=== PATIENT | female | born 1995 | race Caucasian/White ===

== ENCOUNTER 2020-10-10 11:03 | Emergency (ER) | payer OTHER ==
[~2020-10-10] VITALS: Ht 160 cm; Wt 83.5 kg
[2020-10-10] MEDS ORDERED: PRENATABS RX T1 EACH PO (11:24)
== END 2020-10-10 18:02 | disposition home or self-care (01) ==
LOC: ER 11:03
DX: O26.892 Other specified pregnancy related conditions, second trimester (principal); R10.2 Pelvic and perineal pain; Z34.02 Encounter for supervision of normal first pregnancy, second trimester

== ENCOUNTER 2020-11-03 17:24 | Emergency (ER) | payer OTHER ==
[~2020-11-03] VITALS: Ht 160 cm; Wt 84.8 kg
[~2020-11-03 17:24] MED LIST: PRENATABS RX T1 EACH PO
[2020-11-03] MEDS ORDERED: ZITHROMAX500 MG PO (20:16)
[2020-11-03] MEDS ORDERED: ZYRTEC10 MG PO (20:16)
[2020-11-03] MEDS ORDERED: TUSSIN100 MG/5 M PO (20:16)
== END 2020-11-03 20:22 | disposition home or self-care (01) ==
LOC: ER 17:24
DX: J06.9 Acute upper respiratory infection, unspecified (principal); Z20.822 Contact with and (suspected) exposure to COVID-19

== ENCOUNTER 2021-03-21 05:20 | Inpatient (IN) | payer OTHER ==
[~2021-03-21] VITALS: Ht 160 cm; Wt 95.7 kg
[~2021-03-21 05:20] MED LIST changes: +TUSSIN100 MG/5 M PO; +ZITHROMAX500 MG PO; +ZYRTEC10 MG PO
[2021-03-21] MEDS ORDERED: IRON325 MG PO (06:18)
[2021-03-21] MEDS ORDERED: FUSION PLUS CA1 EACH (08:16)
== END 2021-03-23 18:38 | disposition home or self-care (01) | DRG 807 ==
LOC: OB/GYN 05:20 → LDR 05:20 → OB/GYN 20:34
PROVIDERS: ADMIT Specialist; ATTEND Specialist
PROC: 10E0XZZ Delivery of Products of Conception, External Approach (ICD-10-PCS; principal; 2021-03-21)
PROC: 0W8NXZZ Division of Female Perineum, External Approach (ICD-10-PCS; 2021-03-21)
PROC: 10907ZC Drainage of Amniotic Fluid, Therapeutic from Products of Conception, Via Natural or Artificial Opening (ICD-10-PCS; 2021-03-21)
PROC: 3E033VJ Introduction of Other Hormone into Peripheral Vein, Percutaneous Approach (ICD-10-PCS; 2021-03-21)
PROC: 4A1HXFZ Monitoring of Products of Conception, Cardiac Rhythm, External Approach (ICD-10-PCS; 2021-03-21)
DX: O80 Encounter for full-term uncomplicated delivery (principal); Z37.0 Single live birth; Z3A.39 39 weeks gestation of pregnancy

== ENCOUNTER 2021-03-28 02:55 | Emergency (ER) | payer OTHER ==
[~2021-03-28] VITALS: Ht 160 cm; Wt 95.7 kg
[~2021-03-28 02:55] MED LIST changes: +FUSION PLUS CA1 EACH; +IRON325 MG PO
== END 2021-03-28 10:26 | disposition home or self-care (01) ==
LOC: ER 02:55
DX: R50.9 Fever, unspecified (principal); R10.84 Generalized abdominal pain; Z20.822 Contact with and (suspected) exposure to COVID-19